=== PATIENT | male | born 1970 | race Caucasian/White ===

== ENCOUNTER 2021-09-23 13:13 | Emergency (ER) | payer OTHER, MEDICAID, SELFPAY ==
[2021-09-23 13:36] VITALS: BP 154/108; PULSE 86; RESP 16; TEMP 36.8; O2SAT 95; BMI 34.2
[2021-09-23 14:10] LABS: COVID19 -Nasal RAPID Negative (Negative)
--- NOTE | 2021-09-23 16:23 | DI.RAD.S_ITS ---
PROCEDURE: XR CHEST 1V INDICATIONS: persistent cough TECHNIQUE: One view of the chest was acquired. COMPARISON: [facility], CR, XR CHEST 2 VIEWS, 09/17/2021, 23:49. FINDINGS: Surgical changes and devices: None. Lungs and pleura: Lungs are clear. No pleural effusions or pneumothorax. Mediastinum: Mediastinal contours appear normal. Heart size is normal. Bones and chest wall: No suspicious bony lesions. Overlying soft tissues appear unremarkable. IMPRESSION: No acute cardiopulmonary abnormality. Dictated by: Mihai Bills M.D. on 09/23/2021 at 16:55 Approved by: Mihai Bills M.D. on 09/23/2021 at 16:57
[2021-09-23 16:44] LABS: Add Manual Diff / Slide Review NO; Basophils Absolute Auto 100 /uL (0-100); Basophils Percent Auto 1.2 % (0-2); Eosinophils Absolute Auto 300 /uL (0-450); Eosinophils Percent Auto 3.4 % (2-4); Hematocrit 47.8 % (41-53); Hemoglobin 16.3 g/dL (13.5-17.5); Lymphocytes Absolute Auto 2700 /uL (1100-4500); Lymphocytes Percent Auto 34.1 % (25-40); Mean Corpuscular HGB Conc 34.1 % (30-36); Mean Corpuscular Hemoglobin 28.6 PG (26-34); Mean Corpuscular Volume 83.8 fL (80-100); Monocytes Absolute Auto 800 /uL (0-900); Neutrophils Absolute Auto 4100 /uL (1500-7000); Neutrophils Percent Auto 51.3 % (50-75); Platelet Count 349 X10^3/uL (150-400); Red Cell Distribution Width 14.8 % (11.6-14.8)
--- NOTE | 2021-09-23 16:45 | ED.NAVMDI ---
HPI - Nausea/Vomiting/Diarrhea <KHARI Jarvis - Last Filed: 09/23/21 17:31> General Chief complaint: Nausea/Vomiting/Diarrhea Stated complaint: motion sicknees/don't feel well Time Seen by Provider: 09/23/21 16:22 Source: patient Mode of arrival: Ambulatory History of Present Illness HPI Narrative: This is a 50-year-old male with history notable for Burkitt lymphoma, schizophrenia, bipolar one disorder, ADD, and anxiety with an any that shows over 23 ER visits this year who presents to the emergency department today complaining of generalized pain and a productive cough which is green. On chart review it appears that patient was seen at [facility] for bronchitis on 09/17/2021 with a normal chest x-ray and no evidence of pneumonia. Patient denies any recent fever, nausea vomiting, denies need for any refills of his psych medications, states that he does not take any, states that he needs pain medicine, states that the Haldol in worked for him last time. Related Data Home Medications Medication Instructions Recorded Confirmed Atorvastatin Calcium (Lipitor) Q DAY ##0 09/17/09 LEVOTHYROXINE SODIUM (Synthroid) 125 mcg PO Q DAY ##0 09/17/09 [PULMACORT] BID ##0 09/17/09 [TESTOSTERONE GEL] Q DAY ##0 09/17/09 Allergies Allergy/AdvReac Type Severity Reaction Status Date / Time codeine Allergy Verified 09/23/21 18:47 Penicillins Allergy Verified 09/23/21 18:47 Review of Systems <KHARI Jarvis - Last Filed: 09/23/21 17:31> Review of Systems Narrative: General: denies fever, chills, malaise, sweats, fatigue Head/Neck: denies headache, neck pain, dizziness Eyes: denies visual changes, eye pain Cardio: denies chest pain, palpitations, edema Respiratory: denies dyspnea, endorses having a productive cough, denies orthopnea GI: denies abdominal pain, nausea, vomiting, or diarrhea : denies dysuria, hematuria, urinary retention, frequency or incontinence MSK: denies joint pain, muscle weakness Skin: denies rash, itching, skin lesions or other Neuro: denies numbness, tingling Patient History <KHARI Jarvis - Last Filed: 09/23/21 17:31> Social History Smoking Status: Current every day smoker Smoking Status: Current every day smoker tobacco type: cigarettes Substance Use Type: marijuana Exam <KHARI Jarvis - Last Filed: 09/23/21 17:31> Narrative Exam Narrative: Independently reviewed vitals signs and nursing notes. General: cooperative, comfortable, in no acute distress, well groomed Head: atraumatic, symmetrical facial expressions Neck: supple Eyes: equal round and reactive, EOMI, conjunctiva normal Nose: nares patent, no rhinorrhea Mouth/Throat: moist mucus membranes Cardiovascular: regular rate and rhythm, no peripheral edema, warm extremities Respiratory: normal effort, able to speak in complete sentences, no audible wheezing, stridor, or rales. No retractions or tachypnea. GI: abdomen soft, nontender to palpation, nondistended, no masses, no exquisite tenderness with exam, without guarding or rebound. MSK: moves all extremities, neurovascularly intact, no weakness, normal tone Skin: brisk capillary refill, no rash, no erythema Neuro: normal speech and cognition, A&O x3 Psych: mental status is grossly normal, congruent mood, normal affect, pleasant and cooperative Initial Vital Signs Initial Vital Signs: Vital Signs Temperature 98.3 F 09/23/21 13:36 Pulse Rate 86 09/23/21 13:36 Respiratory Rate 16 09/23/21 13:36 Blood Pressure 154/108 H 09/23/21 13:36 Pulse Oximetry 95 09/23/21 13:36 Oxygen Delivery Method 09/23/21 13:36 <Saida Jonas DO - Last Filed: 09/30/21 21:27> Initial Vital Signs Initial Vital Signs: Vital Signs Temperature 98.3 F 09/23/21 13:36 Pulse Rate 86 09/23/21 13:36 Respiratory Rate 16 09/23/21 13:36 Blood Pressure 154/108 H 09/23/21 13:36 Pulse Oximetry 95 09/23/21 13:36 Oxygen Delivery Method 09/23/21 13:36 Course <KHARI Jarvis - Last Filed: 09/23/21 17:31> Orders Ordered: Discontinued Medications Acetaminophen (Acetaminophen 325 Mg Tablet) 975 mg PO NOW ONE Stop: 09/23/21 17:24 Last Admin: 09/23/21 17:28 Dose: 975 mg Documented By: AT Guaifenesin (Guaifenesin Er 600 Mg Tab) 600 mg PO NOW ONE Stop: 09/23/21 17:16 Last Admin: 09/23/21 17:28 Dose: 600 mg Documented By: AT Ketorolac Tromethamine (Ketorolac 10 Mg Tablet) 10 mg PO NOW ONE Stop: 09/23/21 17:24 Last Admin: 09/23/21 17:28 Dose: 10 mg Documented By: AT Ondansetron HCl (Ondansetron 4 Mg/2 Ml Inj) 4 mg IV NOW ONE Stop: 09/23/21 16:31 Last Admin: 09/23/21 16:54 Dose: 4 mg Documented By: AT Vital Signs Vital signs: Vital Signs - 8 hr 09/23/21 13:36 09/23/21 17:09 Temperature 98.3 F Pulse Rate 86 75 Respiratory Rate 16 18 Blood Pressure 154/108 H 139/79 Pulse Oximetry 95 99 Oxygen Delivery Method Room Air Room Air <Saida Jonas, - Last Filed: 09/30/21 21:27> Orders Ordered: Discontinued Medications Acetaminophen (Acetaminophen 325 Mg Tablet) 975 mg PO NOW ONE Stop: 09/23/21 17:24 Last Admin: 09/23/21 17:28 Dose: 975 mg Documented By: AT Guaifenesin (Guaifenesin Er 600 Mg Tab) 600 mg PO NOW ONE Stop: 09/23/21 17:16 Last Admin: 09/23/21 17:28 Dose: 600 mg Documented By: AT Ketorolac Tromethamine (Ketorolac 10 Mg Tablet) 10 mg PO NOW ONE Stop: 09/23/21 17:24 Last Admin: 09/23/21 17:28 Dose: 10 mg Documented By: AT Ondansetron HCl (Ondansetron 4 Mg/2 Ml Inj) 4 mg IV NOW ONE Stop: 09/23/21 16:31 Last Admin: 09/23/21 16:54 Dose: 4 mg Documented By: AT Vital Signs Vital signs: Vital Signs - 8 hr 09/23/21 13:36 09/23/21 17:09 Temperature 98.3 F Pulse Rate 86 75 Respiratory Rate 16 18 Blood Pressure 154/108 H 139/79 Pulse Oximetry 95 99 Oxygen Delivery Method Room Air Room Air MDM - Nausea/Vomiting/Diarrhea <KHARI Jarvis - Last Filed: 09/23/21 17:31> Lab Data Result diagrams: 09/23/21 16:20 09/23/21 16:20 Labs: Lab Results 09/23/21 09/23/21 09/23/21 Range/Units 13:44 16:20 16:20 WBC 8.0 (4.5-11.0) X10^3/uL RBC 5.70 (4.5-5.9) X10^6/uL Hgb 16.3 (13.5-17.5) g/dL Hct 47.8 (41-53) % MCV 83.8 (80-100) fL MCH 28.6 (26-34) PG MCHC 34.1 (30-36) % RDW 14.8 (11.6-14.8) % Plt Count 349 (150-400) X10^3/uL Neut % (Auto) 51.3 (50-75) % Lymph % (Auto) 34.1 (25-40) % [place] % (Auto) 10.0 (3-14) % Eos % (Auto) 3.4 (2-4) % Baso % (Auto) 1.2 (0-2) % Neut # (Auto) 4100 (9221-0191) /uL Lymph # (Auto) 2700 (8322-8323) /uL [place] # (Auto) 800 (0-900) /uL Eos # (Auto) 300 (0-450) /uL Baso # (Auto) 100 (0-100) /uL Sodium 138 (137-145) mmol/L Potassium 4.3 (3.4-5.1) mmol/L Chloride 105 (98-107) mmol/L Carbon Dioxide 22 (22-32) mmol/L BUN 15 (9-20) mg/dL Creatinine 0.91 (0.66-1.25) mg/dL Estimated GFR > 60 (>60) mL/min BUN/Creatinine Ratio 16.5 (6-22) Glucose 93 (70-100) mg/dL Lactate (0.7-2.1) mmol/L Calcium 9.2 (8.4-10.2) mg/dL Total Bilirubin 0.7 (0.2-1.3) mg/dL AST 63 H (17-59) IU/L ALT 30 (<50) IU/L Alkaline Phosphatase 97 (38-126) U/L Total Protein 8.0 (6.3-8.2) g/dL Albumin 4.7 (3.5-5.0) g/dL Globulin 3.3 (1.7-4.1) g/dL Albumin/Globulin Ratio 1.4 (1.0-2.8) Lipase 129 (23-300) U/L SARS-CoV-2 (PCR) Negative (Negative) 09/23/21 Range/Units 16:20 WBC (4.5-11.0) X10^3/uL RBC (4.5-5.9) X10^6/uL Hgb (13.5-17.5) g/dL Hct (41-53) % MCV (80-100) fL MCH (26-34) PG MCHC (30-36) % RDW (11.6-14.8) % Plt Count (150-400) X10^3/uL Neut % (Auto) (50-75) % Lymph % (Auto) (25-40) % [place] % (Auto) (3-14) % Eos % (Auto) (2-4) % Baso % (Auto) (0-2) % Neut # (Auto) (8728-3315) /uL Lymph # (Auto) (5361-0420) /uL [place] # (Auto) (0-900) /uL Eos # (Auto) (0-450) /uL Baso # (Auto) (0-100) /uL Sodium (137-145) mmol/L Potassium (3.4-5.1) mmol/L Chloride (98-107) mmol/L Carbon Dioxide (22-32) mmol/L BUN (9-20) mg/dL Creatinine (0.66-1.25) mg/dL Estimated GFR (>60) mL/min BUN/Creatinine Ratio (6-22) Glucose (70-100) mg/dL Lactate 0.8 (0.7-2.1) mmol/L Calcium (8.4-10.2) mg/dL Total Bilirubin (0.2-1.3) mg/dL AST (17-59) IU/L ALT (<50) IU/L Alkaline Phosphatase (38-126) U/L Total Protein (6.3-8.2) g/dL Albumin (3.5-5.0) g/dL Globulin (1.7-4.1) g/dL Albumin/Globulin Ratio (1.0-2.8) Lipase (23-300) U/L SARS-CoV-2 (PCR) (Negative) Imaging Data Chest x-ray: Radiologist's Impression: PROCEDURE:? XR CHEST 1V ? INDICATIONS:? persistent cough ? TECHNIQUE:? One view of the chest was acquired.? ? COMPARISON:? [facility], CR, XR CHEST 2 VIEWS, 09/17/2021, 23:49. ? FINDINGS:? ? Surgical changes and devices:? None.? ? Lungs and pleura:? Lungs are clear.? No pleural effusions or pneumothorax.? ? Mediastinum:? Mediastinal contours appear normal.? Heart size is normal.? ? Bones and chest wall:? No suspicious bony lesions.? Overlying soft tissues appear unremarkable.? ? IMPRESSION:? No acute cardiopulmonary abnormality. ? ? Dictated by: Mihai Bills M.D. on 09/23/2021 at 16:55 ? ? Approved by: Mihai Bills M.D. on 09/23/2021 at 16:57 ? ECG Data Interpretation: EKG independently reviewed by Dr. oJnas and reveals normal sinus rhythm at 72 bpm with regular axis and intervals. No STEMI, ST segment changes, arrhythmia, or acute ischemic changes. MDM Narrative Medical decision making narrative: This is a 50-year-old male with history of schizophrenia, multiple emergency department visits this year, history notable for Burkitt lymphoma, schizophrenia, bipolar one disorder, ADD and anxiety who presents to the emergency department for evaluation of his productive cough. Patient was seen at [facility] on 09/17/21 and diagnosed with bronchitis with a normal chest x-ray without evidence of pneumonia. He was evaluated today for similar things, his chest x-ray was negative for acute abnormality, breath sounds are clear on my exam, patient does not have any signs of distress or abnormal vital signs, no sinus tenderness, EKG without any QT prolongation or ST changes, patient is requesting pain medication, he was treated in the emergency department for his productive cough with Mucinex Tylenol and ibuprofen. Was not given any prescriptions of any medications, he is not dehydrated appearing, he is cooperative and without any distress. Patient is appropriate and amenable to discharge home. Lab work overall is grossly unremarkable, there is no leukocytosis, no electrolyte abnormalities, no elevation in his liver enzymes, COVID is negative. Vital signs are stable on repeat examination is unremarkable. Patient has been informed of results. Patient has been given strict return to ER precautions for any new or worsening symptoms. Patient understands to follow up closely with outpatient providers as instructed. Patient understands plan and agrees to discharge home. All questions and concerns answered at this time. <Saida Jonas, - Last Filed: 09/30/21 21:27> Lab Data Labs: Lab Results 09/23/21 09/23/21 09/23/21 Range/Units 13:44 16:20 16:20 WBC 8.0 (4.5-11.0) X10^3/uL RBC 5.70 (4.5-5.9) X10^6/uL Hgb 16.3 (13.5-17.5) g/dL Hct 47.8 (41-53) % MCV 83.8 (80-100) fL MCH 28.6 (26-34) PG MCHC 34.1 (30-36) % RDW 14.8 (11.6-14.8) % Plt Count 349 (150-400) X10^3/uL Neut % (Auto) 51.3 (50-75) % Lymph % (Auto) 34.1 (25-40) % [place] % (Auto) 10.0 (3-14) % Eos % (Auto) 3.4 (2-4) % Baso % (Auto) 1.2 (0-2) % Neut # (Auto) 4100 (8818-3687) /uL Lymph # (Auto) 2700 (5775-7081) /uL [place] # (Auto) 800 (0-900) /uL Eos # (Auto) 300 (0-450) /uL Baso # (Auto) 100 (0-100) /uL Sodium 138 (137-145) mmol/L Potassium 4.3 (3.4-5.1) mmol/L Chloride 105 (98-107) mmol/L Carbon Dioxide 22 (22-32) mmol/L BUN 15 (9-20) mg/dL Creatinine 0.91 (0.66-1.25) mg/dL Estimated GFR > 60 (>60) mL/min BUN/Creatinine Ratio 16.5 (6-22) Glucose 93 (70-100) mg/dL Lactate (0.7-2.1) mmol/L Calcium 9.2 (8.4-10.2) mg/dL Total Bilirubin 0.7 (0.2-1.3) mg/dL AST 63 H (17-59) IU/L ALT 30 (<50) IU/L Alkaline Phosphatase 97 (38-126) U/L Total Protein 8.0 (6.3-8.2) g/dL Albumin 4.7 (3.5-5.0) g/dL Globulin 3.3 (1.7-4.1) g/dL Albumin/Globulin Ratio 1.4 (1.0-2.8) Lipase 129 (23-300) U/L SARS-CoV-2 (PCR) Negative (Negative) 09/23/21 Range/Units 16:20 WBC (4.5-11.0) X10^3/uL RBC (4.5-5.9) X10^6/uL Hgb (13.5-17.5) g/dL Hct (41-53) % MCV (80-100) fL MCH (26-34) PG MCHC (30-36) % RDW (11.6-14.8) % Plt Count (150-400) X10^3/uL Neut % (Auto) (50-75) % Lymph % (Auto) (25-40) % [place] % (Auto) (3-14) % Eos % (Auto) (2-4) % Baso % (Auto) (0-2) % Neut # (Auto) (9687-7293) /uL Lymph # (Auto) (8655-2074) /uL [place] # (Auto) (0-900) /uL Eos # (Auto) (0-450) /uL Baso # (Auto) (0-100) /uL Sodium (137-145) mmol/L Potassium (3.4-5.1) mmol/L Chloride (98-107) mmol/L Carbon Dioxide (22-32) mmol/L BUN (9-20) mg/dL Creatinine (0.66-1.25) mg/dL Estimated GFR (>60) mL/min BUN/Creatinine Ratio (6-22) Glucose (70-100) mg/dL Lactate 0.8 (0.7-2.1) mmol/L Calcium (8.4-10.2) mg/dL Total Bilirubin (0.2-1.3) mg/dL AST (17-59) IU/L ALT (<50) IU/L Alkaline Phosphatase (38-126) U/L Total Protein (6.3-8.2) g/dL Albumin (3.5-5.0) g/dL Globulin (1.7-4.1) g/dL Albumin/Globulin Ratio (1.0-2.8) Lipase (23-300) U/L SARS-CoV-2 (PCR) (Negative) Discharge Plan Departure Patient Disposition: Home Clinical Impression: Pain Cough Qualifiers: Cough type: acute Qualified Code(s): R05.1 - Acute cough Instructions: Cough Activity Restrictions/Additional Instructions: *You have been diagnosed with a cough which is improving since your diagnosed with bronchitis. Please use Mucinex as needed for your productive cough to help thin the secretions. Stay hydrated, drink plenty of water, take Tylenol and ibuprofen as needed for your pain. Follow-up with your regular doctor if you need ongoing pain medicine. Did not find any emergent causes to your pain today, I hope that you feel better soon, please utilize your resources that are available to you, return to the emergency department for any new or worsening conditions. I hope you feel better soon. Please follow-up with Dr. Estrada on 10/19/21 at 1:30 PM *What to do: *Please continue to take your regular medications as directed. [ ] New medication prescriptions sent to your pharmacy: [ ] [ ] New medication written as a paper prescription [ x] No new medications given *Please follow up with your primary care provider in 2-3 days, call for an appointment. Let them know you were seen in the Emergency Department and that we asked that you be seen for follow-up. We will electronically transmit a record of today's note if your PCP is in our system *If you do not have a primary care provider please contact [phone] to establish care with one of the [facility] primary care providers. *Return to Emergency Department if you should have any new, worsening or concerning symptoms, such as [fever greater than 101F, chills, worsening pain, persistent vomiting or other bothersome symptoms] Prescriptions: No Action Atorvastatin Calcium (Lipitor) Q DAY Qty: 0 LEVOTHYROXINE SODIUM (Synthroid) 125 mcg PO Q DAY Qty: 0 [PULMACORT] BID Qty: 0 [TESTOSTERONE GEL] Q DAY Qty: 0 Referrals: Sarah Baron MD [Primary Care Provider] - Moises Willis MD [Non-Staff] - (You have a f/u appt with Dr. Moises willis for 10/19/21 at 1:30 PM please go to this) Visit Report Forms: Patient Portal/API <Saida Jonas DO - Last Filed: 09/30/21 21:27> Cosign ED Attending Michelaature Attestation: I was immediately available in the department for consultation. Documentation has been reviewed.
[2021-09-23 16:54] LABS: Lactate (Lactic Acid) 0.8 mmol/L (0.7-2.1)
[2021-09-23] MEDS: ONDANSETRON 4 MG/2 ML INJ IV (16:54)
[2021-09-23 16:55] LABS: Alanine Aminotransferase 30 IU/L (<50); Albumin 4.7 g/dL (3.5-5.0); Albumin Globulin Ratio 1.4 (1.0-2.8); Alkaline Phosphatase 97 U/L (38-126); Aspartate Aminotransferase 63 IU/L (17-59); BUN Creatinine Ratio 16.5 (6-22); Bilirubin Total 0.7 mg/dL (0.2-1.3); Blood Urea Nitrogen 15 mg/dL (9-20); Calcium 9.2 mg/dL (8.4-10.2); Carbon Dioxide 22 mmol/L (22-32); Chloride 105 mmol/L (98-107); Estimated Glomerular Filt Rate > 60 mL/min (>60); Globulin 3.3 g/dL (1.7-4.1); Glucose 93 mg/dL (70-100); HEMOLYSIS 31 (0-50); Lipase 129 U/L (23-300); Potassium 4.3 mmol/L (3.4-5.1); Sodium 138 mmol/L (137-145)
[2021-09-23 17:09] VITALS: BP 139/79; PULSE 75; RESP 18; O2SAT 99
[2021-09-23] MEDS: KETOROLAC 10 MG TABLET PO (17:28)
[2021-09-23] MEDS: ACETAMINOPHEN 325 MG TABLET 975 MG PO (17:28)
[2021-09-23] MEDS: guaiFENesin ER 600 MG TAB PO (17:28)
--- NOTE | 2021-09-23 17:36 | CM.SWNOTE ---
[employer]AGE BAT[employer]Y INSPECTOR [employer] Note Patient is 50 y/o male who presents with concerns of dizziness and and not feeling well. Patient presents with flat affect, slow to respond and speaks quietly. Per Gabino, patient has hx of Schizophrenia. Patient endorses auditory hallucinations as baseline. Patient presents as calm and cooperative. Patient presents with eyes closed and not responsive to all of cat scan tech questions. Patient endorses he is not good and states he is unstable with his medications. Patient endorses concerns with the apartment complex he is living at stating that there is substance use and break ins there. Patient endorses that he is connected with housing assistance programs and was told that he just needs to find a new place. STORAGE BATTERY INSPECTOR AND TESTER prints and provides patient with lists of affordable housing locations in [facility]. STORAGE BATTERY INSPECTOR AND TESTER calls [facility] in [place] and schedules PCP f/u appt for patient with PCP Dr. Moises Gallagher for 10/19/21 at 1:30 PM. This information is provided to patient upon d/c to home. It is the opinion of this STORAGE BATTERY INSPECTOR AND TESTER that patient is safe to d/c. STORAGE BATTERY INSPECTOR AND TESTER reviews the above with ED provider KHARI Montiel who indicates agreement and understanding. Plan: Patient to d/c to home upon medical clearance with PCP f/u appt for 10/19/[address] Gallagher at [facility] in [place]. ROBERTO Montes De Oca
== END 2021-09-23 17:39 | disposition home or self-care (01) ==
PROVIDERS: Emergency Medicine; Emergency Provider Nurse Practitioner Critical Care Medicine; PCP Family Medicine
DX: R05.1 Acute cough (principal); Z20.822 Contact with and (suspected) exposure to COVID-19
CPT/HCPCS: 36415; 71045; 80053; 83605; 83690; 85025; 87635; 93005; 96374; 99284; C9803; J2405

== ENCOUNTER 2021-09-23 18:05 | Emergency (ER) | payer OTHER, MEDICAID, SELFPAY ==
[2021-09-23 18:44] VITALS: BP 145/87; PULSE 72; RESP 16; TEMP 36.6; O2SAT 98; BMI 34.2
== END 2021-09-23 22:31 | disposition left against medical advice (07) ==
PROVIDERS: Emergency Provider Emergency Medicine; PCP Family Medicine
CPT/HCPCS: 99281

== ENCOUNTER 2021-09-24 03:02 | Emergency (ER) | payer OTHER, MEDICAID, SELFPAY ==
[2021-09-24 03:39] VITALS: BP 153/88; PULSE 81; RESP 18; TEMP 36.6; O2SAT 98; BMI 34.2
--- NOTE | 2021-09-24 04:59 | ED.DIZZY ---
HPI - Dizziness General Chief Complaint: Dizziness Stated Complaint: ringing in ears and light headedness Time Seen by Provider: 09/24/21 04:59 Source: patient Mode of arrival: Ambulatory History of Present Illness HPI Narrative: 50-year-old male Burkitt lymphoma, schizophrenia, bipolar one disorder, ADD, and anxiety returns with a chief complaint of ringing in his ears. He states that he is had upper respiratory complaints such as runny nose, nasal congestion cough and ear fullness and ringing for upwards of a month. He states he is had frequent episodes of dry hacking cough and suffered an abdominal muscle strain that has been acting up on him for about the past month. He is had multiple emergency department visits including a few days ago at [facility] as well as earlier today with very reassuring and thorough evaluations including normal labs, negative COVID test and chest x-rays which are clear. He denies any blurred vision or trouble with speech. He denies chest pain or shortness of breath. He denies nausea or vomiting. Related Data Home Medications Medication Instructions Recorded Confirmed Atorvastatin Calcium (Lipitor) Q DAY ##0 09/17/09 LEVOTHYROXINE SODIUM (Synthroid) 125 mcg PO Q DAY ##0 09/17/09 [PULMACORT] BID ##0 09/17/09 [TESTOSTERONE GEL] Q DAY ##0 09/17/09 Allergies Allergy/AdvReac Type Severity Reaction Status Date / Time codeine Allergy Verified 09/23/21 18:47 Penicillins Allergy Verified 09/23/21 18:47 Review of Systems Review of Systems Narrative: GENERAL: See HPI HEENT: See HPI RESPIRATORY: See HPI CARDIOVASCULAR: See HPI GASTROINTESTINAL: See HPI : Denies dysuria, frequency, incontinence, hematuria, urinary retention. MUSCULOSKELETAL: denies weakness, joint pain, or bony pain SKIN: Denies rash, skin lesions, or other NEUROLOGIC: Denies weakness, headache, numbness, change in speech, confusion, seizures, incoordination. PSYCHIATRIC: No concerning psychosocial issues. 12 point review of systems is negative except for those stated above Patient History Social History Smoking Status: Current every day smoker Smoking Status: Current every day smoker tobacco type: cigarettes Substance Use Type: marijuana Exam Narrative Exam Narrative: GENERAL: [50] year old patient appears stated age. Well-developed patient, in no obvious distress, resting comfortably HEAD: Atraumatic. Normocephalic. EYES: Pupils equal round and reactive. Extraocular motions intact. No scleral icterus. No injection or drainage. ENT: Moist mucous membranes Nose without bleeding, purulent drainage. Throat without erythema, tonsillar hypertrophy or exudate. Airway patent. Bilateral tympanic membranes are flat and clear and without any loss of landmarks, left tympanic membrane has minimal clear fluid. There is clear postnasal drip NECK: Trachea midline. Non tender CARDIOVASCULAR: Regular rate and rhythm without murmurs, gallops, or rubs. RESPIRATORY: Clear to auscultation. Breath sounds equal bilaterally. No wheezes, rales, or rhonchi. GASTROINTESTINAL: Abdomen soft, non-tender, nondistended. EXTREMITIES: No edema or joint tenderness. BACK: Nontender without deformity or crepitance. No flank tenderness. NEURO: AOx3. SKIN: No rash or erythema of visible areas Initial Vital Signs Initial Vital Signs: Vital Signs Temperature 97.9 F 09/24/21 03:39 Pulse Rate 81 09/24/21 03:39 Respiratory Rate 18 09/24/21 03:39 Blood Pressure 153/88 H 09/24/21 03:39 Pulse Oximetry 98 09/24/21 03:39 Oxygen Delivery Method 09/24/21 03:39 Course Orders Ordered: Discontinued Medications Acetaminophen (Acetaminophen 325 Mg Tablet) 650 mg PO NOW ONE Stop: 09/24/21 05:06 Last Admin: 09/24/21 05:11 Dose: 650 mg Documented By: MARY KATE Vital Signs Vital signs: Vital Signs - 8 hr 09/24/21 03:39 Temperature 97.9 F Pulse Rate 81 Respiratory Rate 18 Blood Pressure 153/88 H Pulse Oximetry 98 Oxygen Delivery Method Room Air MDM - Dizziness MDM Narrative Medical decision making narrative: 50-year-old male has a very reassuring physical exam with normal labs and no significant findings on exam. He has multiple upper respiratory symptoms including nasal congestion, runny nose, postnasal drip, ringing in his ears and cough. He has no fever or chills, no findings on x-ray, and demonstrates no respiratory distress such as use of accessory muscles or hypoxemia. He has not taken any [id number] cough, cold and flu medications such as antihistamines or decongestants. There is no indication for another significant workup. There is no indication for antibiotics. I strongly recommended ongoing use of Tylenol and Motrin for aches and pains as well as the addition of antihistamines and decongestants. He has been given return precautions and questions answered to his apparent satisfaction Discharge Plan Departure Patient Disposition: Home Clinical Impression: Upper respiratory infection Instructions: DI for Viral Upper Respiratory Infection -- Adult Activity Restrictions/Additional Instructions: *You have been diagnosed with [viral upper respiratory infection or possibly even seasonal allergies] *What to do: *Please consider use of Tylenol and or Motrin for aches and pains as well as antihistamines to help dry the secretions which are likely causing many of your symptoms. There are many [id number] antihistamines available such as Zyrtec, Sadaf, Claritin among others. *Please follow up with your primary care provider in 2-3 days, call for an appointment. Let them know you were seen in the Emergency Department and that we ask that you be seen in follow up. We will electronically transmit a record of today's note if your PCP is in our system *If you do not have a primary care provider please contact the [facility] Resource line at [phone]. They will ask some questions about your medical history and help get you set up with a doctor in the community. *Return to Emergency Department if you should have any new, worsening or concerning symptoms, such as [fever greater than 101 F, shaking chills, worsening pain, persistent vomiting or other bothersome symptoms] Prescriptions: No Action Atorvastatin Calcium (Lipitor) Q DAY Qty: 0 LEVOTHYROXINE SODIUM (Synthroid) 125 mcg PO Q DAY Qty: 0 [PULMACORT] BID Qty: 0 [TESTOSTERONE GEL] Q DAY Qty: 0 Referrals: Sarah Baron MD [Primary Care Provider] - Visit Report Forms: Patient Portal/API
[2021-09-24] MEDS: ACETAMINOPHEN 325 MG TABLET 650 MG PO (05:11)
== END 2021-09-24 05:16 | disposition home or self-care (01) ==
PROVIDERS: Emergency Provider Emergency Medicine; PCP Family Medicine
DX: J06.9 Acute upper respiratory infection, unspecified (principal)
CPT/HCPCS: 99282; 99283